=== PATIENT | male | born 1990 | race Caucasian/White ===

== ENCOUNTER → 2023-07-24 10:14 | Outpatient (CLI) | payer OTHER, SELFPAY ==
--- NOTE | 2023-07-24 10:18 | CA_ITS ---
FINAL REPORT TECHNIQUE: Real-time imaging was performed of the extracranial carotid arteries in transverse and longitudinal planes, with color duplex evaluation of blood flow velocity. Spectral analysis was performed. The cervical vertebral arteries were also examined. CLINICAL HISTORY: RT CARTOID BRUIT COMPARISON: None FINDINGS: NASCET technique is utilized for stenosis evaluation. Right carotid system (centimeters/second): CCA: 147 ICA: 114 Vertebral artery: Antegrade ICA/CCA ratio: 0.78 No significant plaque is identified at the bifurcation. Left carotid system (centimeters/second): CCA: 121 ICA: 133 Vertebral artery: Antegrade ICA/CCA ratio: 1.10 No significant plaque is identified at the bifurcation. IMPRESSION: No evidence of stenosis bilateral ICAs. Reviewed, Interpreted and Dictated by Manny Ballesteros MD Transcribed by Gabi Barton Authenticated and [facility]
== END ==
PROVIDERS: PCP Family Medicine; Visit Provider Family Medicine
DX: R09.89 Other specified symptoms and signs involving the circulatory and respiratory systems (principal)
CPT/HCPCS: 93880

== ENCOUNTER → 2023-08-19 12:44 | Outpatient (CLI) | payer OTHER, SELFPAY ==
--- NOTE | 2023-08-19 12:56 | CA_ITS ---
APPROVED REPORT EXAM: Comprehensive 2D, Doppler, and color-flow Echocardiogram Pocket Assembler: QUIQUE Palmer, RVS Ht: 5 ft 11 in Wt: 160lbs BSA: 1.92 BP: 120/70 mmHg Indications: Palpitations, dizziness 2D Dimensions Aortic Root 2.90 cm LA Volume 34.40 mL Left Atrium 2.31 cm LA Volume Index 17.60 mL/m2 (M/F) 16-34 LVOT 1.91 cm (M/F) 1.5-2.5 M-Mode Dimensions RVDd 2.13 cm (0.9-2.6) LA Diam 3.16 cm (1.9-4.0) LVDd 4.73 cm (3.5-5.7) Ao Diam 2.94 cm (2.0-3.7) LVDs 3.12 cm (3.5-5.7) IVSd 0.73 cm (0.6-1.1) PWd 0.65 cm (0.6-1.1) EF (Teich) 62.90% EPSs 0.36 cm FS 34.00% EDV (Teich) 103.90 mL TAPSE 2.59 (<1.7) ESV (Teich) 38.50 mL LV Diastology E Decel Time 120.00 (160-240 msec) E/A Ratio 1.09 MED E' 15.50 (< 7 cm/sec) MED A' 13.90 cm/s E'/MED E' Ratio 5.35 (>14) LAT E' 15.80 (<10 cm/sec) LAT A' 12.10 cm/s E/LAT E' Ratio 5.25 (>14) Aortic Valve LVOT Max 141.00 (70-110 cm/s) LVOT VTI 25.86 cm AoV Peak Hardy. 164.00 (50-130 cm/s) AO Peak GR. 10.70 mmHg AO Mean GR. 5.30 (<5 mmHg) AO VTI 28.68 (18-25 cm) BRANDON (VTI) 2.58 (2.5-4.5 cm2) Mitral Valve MV A Velocity 76.00 (40-130 cm/s) E/A Ratio 1.09 MV Decel. Time 120.00 (160-240 ms) Pulmonary Valve PV Peak Velocity 100.00 (50-150 cm/s) Left Ventricle The left ventricle is normal size. The left ventricular systolic function is normal. The left ventricular ejection fraction is within the normal range. There is normal left ventricular wall thickness. There is normal LV segmental wall motion. The left ventricular diastolic function is normal. LVEF is 60%. Right Ventricle The right ventricle is normal size. The right ventricular systolic function is normal. Atria The left atrium size is normal. The right atrium size is normal. There is no Doppler evidence of interatrial shunt. Aortic Valve The aortic valve opens well. There is no aortic valvular stenosis. No aortic regurgitation is present. Mitral Valve The mitral valve is normal in structure. No evidence of mitral valve stenosis. There is no mitral valve regurgitation noted. Tricuspid Valve The tricuspid valve leaflets are thin and pliable. Trace tricuspid regurgitation. RVSP is normal. Pulmonic Valve The pulmonary valve is normal in structure. Trace pulmonic regurgitation. Great Vessels The aortic root is normal in size. The ascending aorta is normal in size. IVC is normal in size and collapses >50% with inspiration. Pericardium There is no pericardial effusion. Other Information Study Quality: Adequate Conclusion Normal biventricular systolic function. No significant valvular stenosis or regurgitation. Electronically signed by : Rut Powers MD 08/22/2023 00:57:33
== END ==
LOC: RT 12:46
PROVIDERS: PCP Family Medicine; Visit Provider Family Medicine
DX: R09.89 Other specified symptoms and signs involving the circulatory and respiratory systems (principal)
CPT/HCPCS: 93306

== ENCOUNTER 2024-05-07 09:04 | Emergency (ER) | payer OTHER, SELFPAY ==
--- NOTE | 2024-05-07 09:08 | PC.NURSE ---
Dr. Gonzales at [facility] for pt eval
[2024-05-07 09:10] VITALS: BP 137/91; PULSE 102; O2SAT 97
[2024-05-07 09:16] VITALS: BP 137/91; PULSE 103; RESP 18; TEMP 36.4; O2SAT 98; BMI 23.7
[2024-05-07] MEDS: FAMOTIDINE 20MG/2ML VIAL 20 MG IV (09:27)
[2024-05-07] MEDS: LACTATED RINGERS 1000ML 1,000 ML 999 ML IV (09:27)
[2024-05-07] MEDS: DEXAMETHASONE 4MG/ML 1ML VIAL 10 MG IV (09:27)
[2024-05-07] MEDS: EPINEPHrine 1 MG/ML AMPUL 0.3 MG IM (09:27)
[2024-05-07] MEDS: diphenhydrAMINE 50MG/ML VIAL 25 MG IV (09:28)
[2024-05-07 09:30] VITALS: PULSE 92; O2SAT 98
--- NOTE | 2024-05-07 09:31 | HMH.EDGENADL ---
Discharge Plan Disposition Patient Disposition: Home, Self-Care Prescriptions Prescriptions: New amoxicillin 500 mg capsule 500 mg PO TID 14 Days Qty: 42 0RF epinephrine [EpiPen 2-Ton] 0.3 mg/0.3 mL auto-injector 0.3 mg IM Q10M PRN (Reason: anaphylaxis) Qty: 2 0RF Rx Instructions: for 2 doses Referrals Follow up/Referrals: Becky Esteban MD [Primary Care Provider] - See instructions Jerod Medina [Referring] - See instructions Activity Restrictions/Add. Instructions Additional Instructions/Restrictions: You had an anaphylactic reaction today causing your symptoms which included an urticarial rash chest tightness vomiting and diarrhea. Please stop your doxycycline which we presume is the cause of this. I recommend that you follow-up with Dr. Medina for allergy testing to make sure not severely allergic to anything else. Your steroids review were given a long-acting you may also take [id number] Benadryl or Pepcid as needed for your your symptoms. You have been prescribed epinephrine please use this to have 2 organ system involvement and call 911 as we discussed. Also as we stopped her doxycycline you are transition to amoxicillin to cover the tickborne illnesses that you were previously being treated for. Clinical Impressions Clinical Impression: Anaphylaxis Discharge ED Provider: Alfred Gonzales General Adult HPI General Chief complaint: Allergic Reaction Stated complaint: red bumpy rash chest tightness diarrhea Time Seen by Provider: 05/07/24 09:06 Mode of Arrival: Ambulatory Source of Information: Patient Limitations: No Limitations Description of Symptoms (Recalled from ER Triage Doc. by RN): pt reports he developed hives last night around 1999. pt states he is also having some tightness in his chest like he is having difficulty breathing. pt reports a sore throat and N/V/D. pt states about a week ago he removed a tick from his umbilicus. pt states he was started on doxycycline Friday. pt reports he has used cortisone 10 cream on his rash today. History of Present Illness HPI narrative: Patient is a 33-year-old male presents today with hives chest tightness vomiting and diarrhea. States that he found a tick around his umbilicus a week ago went to his primary care doctor on Friday after he removed the tick and he had some erythema and purulence around this area and was started on doxycycline. He has been on this medicine for 2 days and developed a diffuse urticarial rash with associated chest tightness and some vomiting and diarrhea. No fevers or chills states the wound around his abdomen is feeling better. Related Data Previous Rx's Medication Instructions Recorded amoxicillin 500 mg capsule 500 mg PO TID 14 days #42 caps 05/07/24 epinephrine 0.3 mg/0.3 mL 0.3 mg (0.3 mL) IM Q10M PRN 05/07/24 injection, auto-injector (EpiPen anaphylaxis #2 ea 2-Ton) Allergies Allergy/AdvReac Type Severity Reaction Status Date / Time doxycycline Allergy Hives Verified 05/07/24 09:22 [facility] [place] Disclaimer: The information contained in this section may have been updated after the patient was seen, as this information can be updated by other users. Social History Smoking Status: Never smoker alcohol intake: never current occupational status: other Travel in the last 8 weeks: None ROS Obtained: Yes All systems reviewed & no additional complaints except as documented Physical Exam General General appearance: alert and in no apparent distress Respiratory Respiratory exam: Present normal lung sounds bilaterally and respiratory distress Cardiovascular Cardiovascular exam: Present regular rate and normal rhythm Neurological Exam Neurological exam: Present alert and oriented X3 Skin Skin exam: Present other (Diffuse urticarial rash) Medical Decision Making Jg Inquiry Pt receiving controlled substance: No Vital Signs: 05/07/24 09:10 05/07/24 09:16 05/07/24 09:30 Temperature 97.5 F L Temperature Source Oral Pulse Rate 102 H 92 H Pulse Rate [Right] 103 H Respiratory Rate 18 Blood Pressure 137/91 H Blood Pressure [Right Arm] 137/91 H Blood Pressure Mean [Right Arm] 106 Blood Pressure Source [Right Arm] Automatic Cuff Blood Pressure Position [Right Arm] Sitting 02 Sat by Pulse Oximetry 97 98 98 Oxygen Delivery Method Room Air Room Air Room Air 05/07/24 10:00 Temperature Temperature Source Pulse Rate 63 Pulse Rate [Right] Respiratory Rate Blood Pressure Blood Pressure [Right Arm] Blood Pressure Mean [Right Arm] Blood Pressure Source [Right Arm] Blood Pressure Position [Right Arm] 02 Sat by Pulse Oximetry 98 Oxygen Delivery Method Room Air Orders (Tests/Meds): ED MEDICATIONS Generic Name Dose Route Start Last Admin Trade Name Freq PRN Reason Stop Dose Admin Sodium Chloride 8 ml 05/07/24 09:15 Sodium Chloride 0.9% 10ml Vial IV 06/06/24 09:14 NEEDED PRN dilute pepcid Discontinued Medications Generic Name Dose Route Start Last Admin Trade Name Emili PRN Reason Stop Dose Admin Dexamethasone Sodium Phosphate 10 mg 05/07/24 09:15 05/07/24 09:27 Dexamethasone 4mg/Ml 1ml Vial IV 05/07/24 09:16 10 mg ONCE ONE Administration Diphenhydramine HCl 25 mg 05/07/24 09:15 05/07/24 09:28 Diphenhydramine 50mg/Ml Vial IV 05/07/24 09:16 25 mg ONCE ONE Administration Epinephrine HCl 0.3 mg 05/07/24 09:15 05/07/24 09:27 Epinephrine 1 Mg/Ml Ampul IM 05/07/24 09:16 0.3 mg ONCE ONE Administration Famotidine 20 mg 05/07/24 09:15 05/07/24 09:27 Famotidine 20mg/2ml Vial IV 05/07/24 09:16 20 mg ONCE ONE Administration Lactated Ringer's 1,000 mls @ 999 mls/hr 05/07/24 09:15 05/07/24 09:27 Lactated Ringer's 1000 Ml Bag IV 05/07/24 10:15 999 mls/hr .Q1H1M BRE Administration Ondansetron HCl 4 mg 05/07/24 09:41 05/07/24 09:42 Ondansetron 4mg/2ml Vial IV 05/07/24 09:42 4 mg ONCE ONE Administration Medical Decision Narrative: Patient is a nontoxic 33-year-old male presents today with signs and symptoms consistent with anaphylaxis including chest tightness nausea vomiting diarrhea and diffuse urticarial rash. This is likely secondary to the doxycycline that he recently started. Will discussed with him alternative regimens and advised that he stop the doxycycline. Dexamethasone Pepcid Benadryl IV fluids and IM epinephrine have been administered and will reassess. No definitive time. From my standpoint regarding observation is biphasic responses can occur after an extended period of time. Reassessment 9:45 AM patient feeling much better urticarial rash is improving chest tightness has resolved. Does have some nausea Zofran has been administered. Will keep an eye on him for little bit longer and reassess. Will also stop his doxycycline and transition him to amoxicillin 500 tid for 14 days. Reassessment 1041 patient essentially asymptomatic at this point. Feels much better has been stable. He has been given a prescription of epinephrine has been advised about biphasic reactions and when to use when to return to the ED. He was written a prescription for amoxicillin. Also advised him to follow-up with an carton forming machine helper referral has been made to Dr. Medina. Patient was discharged in improved and stable condition. Critical Care Critical Care Time Critical Care Time: Yes Attestation: On 05/07/24, the high probability of a clinically significant, sudden or life threatening deterioration of the following system(s) required my full and direct attention, intervention and personal management. The time I documented below is in addition to time spent performing reported procedures but includes the following listed in this critical care notation. Total Time Total Critical Care Time: 35
[2024-05-07] MEDS: ONDANSETRON 4MG/2ML VIAL 4 MG IV (09:42)
[2024-05-07 10:00] VITALS: PULSE 63; O2SAT 98
[2024-05-07 10:30] VITALS: PULSE 79; O2SAT 100
[2024-05-07 10:48] VITALS: BP 129/88; PULSE 93; RESP 18; TEMP 36.6
== END 2024-05-07 10:50 | disposition home or self-care (01) ==
PROVIDERS: Emergency Provider Student in an Organized Health Care Education/Training Program; PCP Family Medicine
DX: T78.2XXA Anaphylactic shock, unspecified, initial encounter (principal); R07.89 Other chest pain; L50.0 Allergic urticaria
CPT/HCPCS: 96361; 96372; 96374; 96375; 99291; J1100; J2405; J7120